=== PATIENT | female | born 1955 | race American Indian/Alaskan Native ===

== ENCOUNTER 2019-03-17 06:49 | Emergency (ER) | payer MEDICAID ==
--- NOTE | 2019-03-17 07:12 | Emergency Department Report ---
ED CPR HPI - General Stated Complaint: CARDIAC ARREST Time Seen by Provider: 03/17/19 07:07 - History of Present Illness Initial Comments: 63-year-old female who experienced a cardiac arrest I am told at 6 AM. Paramedics described a possible seizure, vomiting and possibly aspiration. They responded at approximately 6:30 and found the patient to be in asystole. He was apneic. There were no signs of life. They were unable to intubate. They proceeded with a Samson air and IO catheter. Despite standard resuscitative efforts the patient remained in asystole with no signs of life for approximately 25 minutes prior to their arrival in the emergency department. Complaint: found unresponsive -: minute(s) (approximately 30) Place: home Downtime Before ACLS Arrival (mins): 30 (this ithis is the current information) Initial Findings in the Field: systole (asystole and apneic) ROSC in the Field: No Associated Injuries: No Treatments Prior to Arrival: intubation - Related Data Home Medications Medication Instructions Recorded Confirmed Last Taken Adult Aspirin 325 mg PO DAILY 04/06/18 04/06/18 Unknown Aleve 1 tab PO DAILY 04/06/18 04/06/18 Unknown Clonidine 0.1 mg PO DAILY 04/06/18 04/06/18 04/06/18 Clopidogrel 75 mg PO DAILY 04/06/18 04/06/18 Unknown Isosorbide Mononitrate 60 mg PO DAILY 04/06/18 04/06/18 Unknown Lisinopril 40 mg PO DAILY 04/06/18 04/06/18 Unknown Metoprolol 100 mg PO DAILY 04/06/18 04/06/18 Unknown Allergies Allergy/AdvReac Type Severity Reaction Status Date / Time No Known Allergies Allergy Verified 04/06/18 13:03 ED Review of Systems ROS: Stated complaint: CARDIAC ARREST Other details as noted in HPI Comment: Unobtainable due to pts medical conditions ED Past Medical Hx - Past Medical History Hx Hypertension: Yes Hx Heart Attack/AMI: Yes Hx Arthritis: Yes Additional medical history: Per the records additionally possibly colon cancer and THOM - Surgical History Hx Coronary Stent: Yes - Social History Smoking Status: Current Every Day Smoker - Medications Home Medications: Home Medications Medication Instructions Recorded Confirmed Last Taken Type Adult Aspirin 325 mg PO DAILY 04/06/18 04/06/18 Unknown History Aleve 1 tab PO DAILY 04/06/18 04/06/18 Unknown History Clonidine 0.1 mg PO DAILY 04/06/18 04/06/18 04/06/18 History Clopidogrel 75 mg PO DAILY 04/06/18 04/06/18 Unknown History Isosorbide Mononitrate 60 mg PO DAILY 04/06/18 04/06/18 Unknown History Lisinopril 40 mg PO DAILY 04/06/18 04/06/18 Unknown History Metoprolol 100 mg PO DAILY 04/06/18 04/06/18 Unknown History ED Physical Exam - General Limitations: Physical Limitation General appearance: obese (morbidly) - Head Head exam: Present: atraumatic - ENT ENT exam: Present: other (Samson air) - Neck Neck exam: Present: normal inspection - Respiratory Respiratory exam: Present: decreased breath sounds (with assist) - Cardiovascular Cardiovascular Exam: Present: other (asystole) - GI/Abdominal GI/Abdominal exam: Present: distended - Extremities Exam Extremities exam: Present: other (edema) - Neurological Exam Neurological exam: Present: other (GCS 3) ED Course - Reevaluation(s) Reevaluation #1: Available information indicates that the patient had a prolonged downtime prior to EMS per special police who stated that she was found by family at 6 AM. Medics stated that resuscitative efforts were of 25 minutes duration. In either case, the patient had no return of any spontaneous circulation nor any signs of life throughout the course of prehospital care which was quite prolonged. There is no indication for further futile efforts. The patient was pronounced DOA. Family were counseled when they arrived. 03/17/19 07:12 Critical care attestation.: If time is entered above; I have spent that time in minutes in the direct care of this critically ill patient, excluding procedure time. ED Disposition Clinical Impression: Cardiac arrest Disposition: [id number] Is pt being admited?: No Does the pt Need Aspirin: No Condition: Stable Time of Disposition: 08:05
== END 2019-03-17 11:21 ==
LOC: ED 06:49
DX: I46.9 Cardiac arrest, cause unspecified (principal)
CPT/HCPCS: 92950